=== PATIENT | female | born 1995 | race Hispanic/Latino ===

== ENCOUNTER 2017-12-29 23:30 | Inpatient (IN) | payer OTHER ==
[2017-12-30 00:25] VITALS: BMI 17.5
[2017-12-30] MEDS ORDERED: Zolpidem Tartrate 5 MG TAB PO PRN (00:42)
[2017-12-30] MEDS ORDERED: HYDROcodone/Acetaminophen 5/325 mg Tablet PO PRN ×2 (00:43)
[2017-12-30] MEDS ORDERED: Sodium Chloride 0.9% 1,000 ML IV SCH (00:45)
[2017-12-30 01:08] LABS: #Basophils 0.1 thou/uL (0.0-0.2); #Eosinphils 0.2 thou/uL (0.0-0.7); #Lymphocytes 2.9 thou/uL (1.20-3.40); #Monocytes 0.8 thou/uL (0.11-0.59); #Neutrophils 6.7 thou/uL (1.40-6.50); %Basophils 0.9 % (0.0-1.0); %Eosinophils 1.6 % (0.0-10.0); %Monocytes 7.7 % (0.0-10.0); %Neutrophils 62.7 % (42.0-75.0); Hemoglobin 12.8 g/dL (12.0-16.0); Mean Corpuscular Hemoglobin 32.4 pg (27.0-31.0); Mean Corpuscular Volume 98.1 fL (78.0-98.0); Platelet Count 293 thou/uL (130-400); Red Blood Cell (RBC) Count 3.96 mill/uL (4.20-5.40); White Blood Cell (WBC) Count 10.7 thou/uL (4.8-10.8)
[2017-12-30] MEDS: cefOXitin 2 GM in Sodium Chloride 0.9% 100 ML IVPB SCH ×4 (02:40→20:00)
[2017-12-30] MEDS: Ibuprofen 800 MG TAB PO PRN ×2 (05:50→15:49)
--- NOTE | 2017-12-30 12:51 | PDOC.EVN ---
Event Note - Event Note Event Note: HD2 S: doing well, minimal discomfort, no fever or chills O: Vital Signs (12 hours) Temp Pulse Resp BP Pulse Ox 12/30/17 11:53 98.2 F 59 L 20 113/58 L 12/30/17 08:10 97.7 F 61 16 106/56 L 98 12/30/17 04:15 97.5 F L 61 16 99/55 L 98 Weight Weight 102 lb NAD A and O nonlabored breathing mild abdominal tenderness, no rebound or guarding ext no cords, no edema Laboratory Results - last 24 hr 12/30/17 00:53 WBC 10.7 RBC 3.96 L Hgb 12.8 Hct 38.8 MCV 98.1 H MCH 32.4 H MCHC 33.0 RDW 12.0 Plt Count 293 MPV 7.0 L Neutrophils % 62.7 Lymphocytes % 27.0 Monocytes % 7.7 Eosinophils % 1.6 Basophils % 0.9 Neutrophils # 6.7 H Lymphocytes # 2.9 Monocytes # 0.8 H Eosinophils # 0.2 Basophils # 0.1 A/P: HD2, admit yesterday for bilateral TOA dx outpatient at [facility] ED on 03/28/17. Pt presented shortly before midnight last night. On cefoxitin and Doxycline IV abx now, plan to continue x 48hrs.
--- NOTE | 2017-12-30 19:48 | HP ---
DATE OF ADMISSION: 12/29/2017 ADMISSION DIAGNOSIS: Bilateral tubo-ovarian abscesses. HISTORY OF PRESENT ILLNESS: Ms. Emilee Padilla is a 22-year-old, G0 who presented to my office on 12/29 for ER followup. The patient states she presented to [facility] [place] ER on 12/26/2017 for severe abdominal pain. The patient had a CT scan with abnormal findings of bilateral pelvic masses that we re suggestive of tubo-ovarian abscesses as well as lymphadenopathy and had a followup ultrasound done while she was in the ER that supported the diagnosis of bilateral tubo-ovarian abscesses. Per the ltrasound report that the patient gave to me, there are bilateral approximately 3-cm tubular structur es immediately adjacent to the ovaries and adnexa. The patient denied any fever or chills during her clinic review of systems. She has reported abdominal pain, which was controlled outpatient with Mot rin at this time. The patient did not report any new partners. Has no known history of STDs, but di d endorse vaginal discharge. I discussed with the patient that tubo-ovarian abscesses are an inpatie nt management and that there is not a recommended outpatient protocol. She agreed to admission with IV antibiotics. PAST MEDICAL HISTORY: Anxiety disorder. PAST SURGICAL HISTORY: Tonsillectomy. CURRENT MEDICATIONS: Doxycycline 100 mg once a day, metronidazole 500 mg once a day, sertraline 25 m g once a day, ibuprofen 600 mg every 6 hours as needed for pain. ALLERGIES: No known drug allergies. SOCIAL HISTORY: The patient smokes Black and Mild as well as marijuana. She reports that she drinks socially. Denies any other illicit drug use. FAMILY HISTORY: Noncontributory. OBSTETRICAL HISTORY: G0. GYNECOLOGIC HISTORY: Last menstrual period 12/17/2017, monthly menses. She is unsure if she had an HPV vaccine. She is sexually active. Denies any sexual problems other than recent dyspareunia. No history of STDs or PID prior. Currently, not using control. No history of endometriosis, fibr oids, or ovarian cyst. REVIEW OF SYSTEMS: As stated above. PHYSICAL EXAMINATION: VITAL SIGNS: Weight 102 pounds, height 5 foot 4-1/2 inches, BMI 17, blood pressure 90/67, pulse 79, respirations 18, afebrile, O2 saturation 98%. GENERAL: No acute distress. Alert and oriented. HEENT: Grossly normal. LUNGS: Clear to auscultation bilaterally. HEART: Regular rate and rhythm. ABDOMEN: Soft. No rebound, no guarding; however, tenderness noted in the right and left lower quadr ants on palpation. GENITOURINARY: Normal external female genitalia. Normal vaginal mucosa. Purulent cervical discharg e noted. No acute cervicitis noted. Bimanual exam deferred. EXTREMITIES: No clubbing, cyanosis, or edema. SKIN: No rashes or lesions. PSYCHIATRIC: Appropriate affect. ASSESSMENT AND PLAN: Ms. Emilee Padilla is a 22-year-old with bilateral tubo-ovarian abscesses suspecte d on outpatient imaging done at [facility] [place] ER on 12/26/2017. She had 1 dose of Rocephin during pending sale to [facility] ER evaluation. We discussed the indication for inpatient IV antibiotics for approximately 48 hours and we discussed the risk of continuing on the outpatient therapy. The patient agreed to admission. She will be admitted on 12/29/2017 with plans for IV antibiotics to include cefoxitin and doxycycli ne, pain medication as needed. The patient's questions have been answered.
[2017-12-31] MEDS: Ibuprofen 800 MG TAB PO PRN ×3 (01:04→22:07)
[2017-12-31] MEDS: cefOXitin 2 GM in Sodium Chloride 0.9% 100 ML IVPB SCH ×4 (02:06→20:30)
--- NOTE | 2017-12-31 09:06 | PDOC.EVN ---
Event Note - Event Note Event Note: HD3 S: pain improved, no pain in LLQ, mild in RLQ, no N/V O: VS WNL NAD A and O nonlabored breathing abd soft, only mild TTP in RLQ, no rebound or guarding no edema or cords A/P: TOA, on IV abx x 48 hrs, pain improved, no fever, plan for DC tomorrow AM after 48hrs abx completed.
[2017-12-31] MEDS ORDERED: Sodium Chloride 0.9% 10 ML ONE (10:54)
[2018-01-01] MEDS: cefOXitin 2 GM in Sodium Chloride 0.9% 100 ML IVPB SCH ×2 (03:17→08:37)
--- NOTE | 2018-01-01 06:24 | PDOC.EVN ---
Event Note - Event Note Event Note: HD4 S: doing well, only concern is light spotting like she is starting her menses early and feels like she is getting a UTI, denies pain, just mild/intermittent dysuria O: VSWNL Gen: NAD Lungs: nonlabored breathing Abd: soft, NTTP, no guarding, no suprapubic tenderness Ext: no cords, normal ROM A/P: suspected TOA, s/p >48hrs of IV abx. Plan for DC home today to continue doxycycline and flagyl outpatient. FU imaging in the office reviewed.
--- NOTE | 2018-01-01 06:42 | DIS ---
DATE OF ADMISSION: 12/29/2017 DATE OF DISCHARGE: 01/01/2018 ADMISSION DIAGNOSES: Suspected tubo-ovarian abscess. HOSPITAL COURSE: Ms. Emilee Padilla is a 22-year-old G0 who presented to my office to follow up from [facility] ER over the weekend. The patient presented to that ER for severe abdominal pain. She had a CT scan as well as an ultrasound done there with the reports brought in for me to review. The reports both were suggestive of bilateral tubo-ovarian abscess. The patient had received 1 dose of antibiotics in the ER and had been started on oral antibiotics. We discussed the indication for inpa tient management with IV antibiotics and the patient was admitted to [facility] on 8 for IV antibiotic treatment. The patient was afebrile at the time of admission, she received just over 48 hours of IV antibiotics and was afebrile throughout her time here. She did report improvemen t of her abdominal pain and was using Motrin only as needed for discomfort at the time of discharge. The patient was discharged home with instructions to continue doxycycline and Flagyl twice a day thr ough 14 days and repeat imaging will be scheduled in my office in approximately a month. The patient 's questions were answered and she was discharged home in good condition.
[2018-01-01 09:47] VITALS: BP 100/59; TEMP 98.1
== END 2018-01-01 10:10 | disposition home or self-care (01) | DRG 759 ==
LOC: 3SE 23:30
PROVIDERS: ADMIT Obstetrics & Gynecology; ATTEND Obstetrics & Gynecology
DX: N70.93 Salpingitis and oophoritis, unspecified (principal); F41.9 Anxiety disorder, unspecified; F17.210 Nicotine dependence, cigarettes, uncomplicated; F12.10 Cannabis abuse, uncomplicated; R30.0 Dysuria
CPT/HCPCS: 85025; 87086; 90471; 90686; G0008; J0694; J7050

== ENCOUNTER 2018-01-21 10:27 | Outpatient (CLI) | payer OTHER ==
--- NOTE | 2018-01-21 13:14 | CT ---
CT ABDOMEN AND PELVIS WITH IV AND ORAL CONTRAST: History: Pelvic inflammatory disease. N73.9 Comparison: None available. FINDINGS: Large amount of oral contrast within the distal esophagus. Extensive motion artifact at the upper abd omen and pelvis obscures detail. The liver, spleen, kidneys, adrenal glands, and pancreas are unremarkable. Nonspecific lymph nodes th roughout the retroperitoneum. No evidence of bowel obstruction. Subtle nonspecific circumferential th ickening of scattered loops of duodenum and proximal jejunum. Appendix is not inflamed. Urinary bladd er is decompressed. Follicles arise from the ovaries. Minimal free fluid in the pelvis. IMPRESSION: 1. No evidence of pelvic abscess. 2. Large amount of gastroesophageal reflux. 3. Subtle circumferential wall thickening of the duodenum and proximal jejunum. Clinical correlation regarding other signs and symptoms of proximal enteritis is required. POS: [facility]
== END 2018-01-21 10:28 | disposition home or self-care (01) ==
LOC: SCSCT 10:27
PROVIDERS: ATTEND Obstetrics & Gynecology
DX: N73.9 Female pelvic inflammatory disease, unspecified (principal); K21.9 Gastro-esophageal reflux disease without esophagitis
CPT/HCPCS: 74177